=== PATIENT | female | born 1970 | race African-American/Black ===

== ENCOUNTER 2017-01-06 11:11 | Emergency (ER) | payer MEDICAID ==
[~2017-01-06 11:11] MED LIST: PEPCID PO; REGLAN10 MG PO
== END 2017-01-06 11:15 | disposition home or self-care (01) ==
LOC: CED 11:11
DX: T17.1XXA Foreign body in nostril, initial encounter (principal); I10 Essential (primary) hypertension; X58.XXXA Exposure to other specified factors, initial encounter; Y92.9 Unspecified place or not applicable
CPT/HCPCS: 99283